=== PATIENT | female | born 1990 | race Hispanic/Latino ===

== ENCOUNTER 2017-10-30 21:00 | Inpatient (IN) | payer MEDICAID, OTHER, SELFPAY ==
[2017-10-30] MEDS ORDERED: Acetaminophen 500 MG TAB PO PRN (22:48)
[2017-10-30] MEDS ORDERED: Lidocaine 1% (PF) 30 ML VIAL SC PRN (22:48)
[2017-10-30] MEDS ORDERED: Misoprostol 200 MCG TAB PR PRN (22:48)
[2017-10-30] MEDS ORDERED: HYDROcodone/Acetaminophen 5/325 mg Tablet PO PRN (22:48)
[2017-10-30] MEDS ORDERED: Ibuprofen 800 MG TAB PO PRN (22:48)
[2017-10-30] MEDS ORDERED: Promethazine HCl 25 MG/ML VIAL IM PRN (22:48)
[2017-10-30] MEDS ORDERED: Zolpidem Tartrate 5 MG TAB PO PRN (22:48)
[2017-10-30] MEDS ORDERED: LR 500 ML/Oxytocin 10 units 500 ML IV SCH (22:48)
[2017-10-30] MEDS ORDERED: Ondansetron HCl/PF 4 MG/2 ML Vial IVP PRN (22:48)
[2017-10-30] MEDS ORDERED: Acetaminophen/Codeine 30-300mg Tablet PO PRN (22:48)
[2017-10-30 23:17] VITALS: BMI 28.6
[2017-10-30] MEDS: Lactated Ringer's 1,000 ML IV SCH (23:30)
[2017-10-30 23:33] LABS: Mean Corpuscular HGB CONC 34.2 g/dL (32.0-36.0); Mean Corpuscular Hemoglobin 30.7 pg (27.0-31.0); Mean Corpuscular Volume 89.9 fl (81.0-99.0); Mean Platelet Volume 6.9 fL (7.4-10.4); Platelet Count 284 thou/uL (130-400); RBC Distribution Width 12.2 % (11.5-14.5); White Blood Cell (WBC) Count 11.3 thou/uL (4.8-10.8)
[2017-10-30] MEDS ORDERED: Misoprostol 100 MCG TAB ONE (23:33)
[2017-10-30] MEDS: Misoprostol 100 MCG TAB VAG SCH (23:47)
[2017-10-30] MEDS: LR 500 ML/Oxytocin 10 units 500 ML IV SCH (23:49)
[2017-10-31 00:38] LABS: HBSAg Index 0.48 S/CO (0-0.99); Hep B Surf Ag Non-Reactive S/CO (NonReactive)
[2017-10-31 00:56] LABS: Syphilis Antibody Nonreactive (Nonreactive); Syphilis Antibody Index 0.06 S/CO (<1.00 Non-Reactive)
[2017-10-31] MEDS: Misoprostol 100 MCG TAB VAG SCH ×6 (02:50→16:48)
[2017-10-31] MEDS: Lactated Ringer's 1,000 ML IV SCH ×3 (06:39→13:00)
[2017-10-31] MEDS: LR 500 ML/Oxytocin 10 units 500 ML IV SCH (11:18)
[2017-10-31] MEDS ORDERED: Fentanyl 4 mcg/Marc 0.1% Cadd 100 ML ONE (11:25)
[2017-10-31] MEDS ORDERED: Naloxone HCl 0.4 mg/ml Vial IVP PRN ×2 (13:43)
[2017-10-31] MEDS ORDERED: diphenhydrAMINE 50 MG/ML VIAL IVP PRN (13:43)
[2017-10-31] MEDS ORDERED: Eucerin (Mineral Oil/Petrolatum,White) 30 gm Jar TOP PRN (13:43)
[2017-10-31] MEDS ORDERED: Ondansetron HCl/PF 4 MG/2 ML Vial IVP PRN ×2 (13:43→21:33)
[2017-10-31] MEDS ORDERED: Lactated Ringer's 500 ML IV PRN (13:43)
[2017-10-31] MEDS ORDERED: ePHEDrine/0.9% NaCl/PF SYRINGE 50 mg/10 ml SLOW IVP PRN (13:43)
[2017-10-31] MEDS ORDERED: Promethazine HCl 25 MG/ML VIAL IM PRN (13:43)
[2017-10-31] MEDS ORDERED: Acetaminophen 325 MG TAB PO PRN (13:43)
[2017-10-31] MEDS ORDERED: Fentanyl 4mcg/Marcaine 0.1% Cassette 100 ML EPIDURAL SCH (13:45)
[2017-10-31] MEDS ORDERED: Communication Order-Pharmacy FS SCH (13:45)
[2017-10-31] MEDS: LR / Pitocin 40 units/1000 ml 1,000 ML IV PRN ×2 (18:50→20:43)
[2017-10-31] MEDS ORDERED: Lidocaine 2% MPF 10 ML AMP (For Epidural Use) ONE (20:06)
[2017-10-31] MEDS ORDERED: Bisacodyl 10 MG SUPP PR PRN (21:33)
[2017-10-31] MEDS ORDERED: Benzocaine/Menthol 20-0.5% 60 ML CAN TOP PRN (21:33)
[2017-10-31] MEDS ORDERED: HYDROcodone/Acetaminophen 5/325 mg Tablet PO PRN (21:33)
[2017-10-31] MEDS ORDERED: Acetaminophen/Codeine 30-300mg Tablet PO PRN (21:33)
[2017-10-31] MEDS ORDERED: Lanolin Ointment 7 GM TUBE TOP PRN (21:33)
[2017-10-31] MEDS ORDERED: diphenhydrAMINE 25 MG CAP PO PRN (21:33)
[2017-10-31] MEDS ORDERED: LR / Pitocin 40 units/1000 ml 1,000 ML IV SCH (21:33)
[2017-10-31] MEDS ORDERED: Preparation H Ointment 28 GM TUBE PR PRN (21:33)
[2017-10-31] MEDS ORDERED: Milk Of Magnesia 30 ML UDCUP PO PRN (21:33)
[2017-10-31] MEDS ORDERED: Docusate Calcium (SURFAK) 240 MG CAP PO SCH (21:45)
[2017-11-01] MEDS: Ibuprofen 800 MG TAB PO SCH ×3 (05:36→21:31)
[2017-11-01] MEDS: Ferrous Sulfate 325 MG TAB PO SCH ×2 (09:24→14:07)
[2017-11-01] MEDS: Prenatal Vitamin 1 TAB PO SCH (09:25)
[2017-11-01] MEDS: Docusate Calcium (SURFAK) 240 MG CAP PO SCH ×2 (09:25→21:31)
[2017-11-02] MEDS: Ibuprofen 800 MG TAB PO SCH (06:19)
[2017-11-02 08:22] VITALS: BP 116/62; TEMP 98.7
[2017-11-02] MEDS: Ferrous Sulfate 325 MG TAB PO SCH (09:52)
[2017-11-02] MEDS: Prenatal Vitamin 1 TAB PO SCH (09:53)
[2017-11-02] MEDS: Docusate Calcium (SURFAK) 240 MG CAP PO SCH (09:53)
[2017-11-02] MEDS: Misoprostol 100 MCG TAB VAG SCH (09:57)
== END 2017-11-02 12:30 | disposition home or self-care (01) | DRG 775 ==
LOC: L&D 22:37 → 3SW 10-31 21:16
PROVIDERS: ADMIT Family Medicine; ATTEND Family Medicine
PROC: 10907ZC Drainage of Amniotic Fluid, Therapeutic from Products of Conception, Via Natural or Artificial Opening (ICD-10-PCS; 2017-10-30)
PROC: 3E033VJ Introduction of Other Hormone into Peripheral Vein, Percutaneous Approach (ICD-10-PCS; 2017-10-30)
PROC: 10E0XZZ Delivery of Products of Conception, External Approach (ICD-10-PCS; principal; 2017-10-31)
PROC: 0HQ9XZZ Repair Perineum Skin, External Approach (ICD-10-PCS; 2017-10-31)
DX: O48.0 Post-term pregnancy (principal); O70.0 First degree perineal laceration during delivery; Z3A.40 40 weeks gestation of pregnancy; Z37.0 Single live birth
CPT/HCPCS: 51702; 76815; 85027; 86780; 87340; J2001; J7120

== ENCOUNTER 2017-11-18 13:39 | Outpatient (CLI) | payer OTHER ==
[2017-11-18 14:39] LABS: #Eosinphils 0.3 thou/uL (0.0-0.7); #Lymphocytes 3.2 thou/uL (1.20-3.40); #Monocytes 0.4 thou/uL (0.11-0.59); #Neutrophils 3.9 thou/uL (1.40-6.50); %Basophils 0.6 % (0.0-1.0); %Eosinophils 3.2 % (0.0-10.0); %Lymphocytes 40.8 % (21.0-51.0); %Monocytes 5.4 % (0.0-10.0); Hemoglobin 12.8 g/dL (12.0-16.0); Mean Corpuscular HGB CONC 32.7 g/dL (32.0-36.0); Mean Corpuscular Hemoglobin 29.7 pg (27.0-31.0); Mean Corpuscular Volume 90.8 fl (81.0-99.0); Mean Platelet Volume 6.7 fL (7.4-10.4); Platelet Count 366 thou/uL (130-400); RBC Distribution Width 11.6 % (11.5-14.5); Red Blood Cell (RBC) Count 4.31 mill/uL (4.20-5.40); White Blood Cell (WBC) Count 7.9 thou/uL (4.8-10.8)
[2017-11-18 15:04] LABS: ALT (SGPT) 17 U/L (8-55); AST (SGOT) 24 U/L (5-34); Albumin 4.1 g/dL (3.5-5.0); Alkaline Phosphatase 107 U/L (40-150); Anion Gap 12 mmol/L (10-20); BUN (Urea Nitrogen) 13 mg/dL (7.0-18.7); Bilirubin, Direct 0.2 mg/dL (0.1-0.3); Bilirubin, Total 0.5 mg/dL (0.2-1.2); Calc. Creatinine Clearance 0 mL/min (70-130); Calcium 9.3 mg/dL (7.8-10.44); Carbon Dioxide 24 mmol/L (22-29); Chloride 106 mmol/L (98-107); Estimated GFR-MDRD 90; Glucose 87 mg/dL (70-105); Potassium 4.2 mmol/L (3.5-5.1); Protein, Total 7.6 g/dL (6.0-8.3); Sodium 138 mmol/L (136-145)
== END 2017-11-18 13:40 | disposition home or self-care (01) ==
LOC: LABBT 13:39
PROVIDERS: ATTEND Surgery
DX: Z01.812 Encounter for preprocedural laboratory examination (principal); K80.20 Calculus of gallbladder without cholecystitis without obstruction
CPT/HCPCS: 80048; 80076; 85025

== ENCOUNTER 2017-11-21 07:11 | Day surgery (SDC) | payer OTHER ==
[2017-11-18 14:07] VITALS: BMI 24.0
[2017-11-21] MEDS ORDERED: Midazolam HCl 2 mg/2 ml Vial ONE (08:24)
[2017-11-21] MEDS ORDERED: Fentanyl 100 MCG/2 ML VIAL ONE (08:48)
[2017-11-21] MEDS ORDERED: HYDROmorphone 0.5 MG/0.5 ML SYRINGE ONE (08:49)
[2017-11-21] MEDS ORDERED: Lidocaine 1% w/Epinephrine 1:200K 30 ML VIAL ONE (08:51)
[2017-11-21] MEDS ORDERED: Bupivacaine PF 0.5% 30 ML VIAL ONE (08:51)
[2017-11-21] MEDS ORDERED: CEFAZOLIN/Water 2 GM/20 ML SYRINGE ONE (08:57)
[2017-11-21] MEDS ORDERED: HYDROcodone/Acetaminophen 5/325 mg Tablet ONE (11:31)
--- NOTE | 2017-11-22 10:27 | OP ---
DATE OF PROCEDURE: 11/22/2017 PREOPERATIVE DIAGNOSIS: Symptomatic gallstones. POSTOPERATIVE DIAGNOSIS: Symptomatic gallstones. PROCEDURE: Laparoscopic cholecystectomy. SURGEON: Fred Franks M.D. ANESTHESIA: General. ESTIMATED BLOOD LOSS: Minimal. COMPLICATIONS: None. SPECIMEN: Gallbladder. FINDINGS: Chronic cholecystitis. PROCEDURE IN DETAIL: The patient was taken to the Operating Room and laid supine on the Operating Qian m table. After general anesthetic was obtained, the abdomen was prepped and draped in a sterile fashi on. A curved incision was made below the umbilicus. Cautery was used to dissect down to the umbilical fascia. Umbilical fascia was incised and held up using a Michelle. The abdominal cavity was entered us ing a Vikki clamp. Holding stitch of Vicryl was placed on each side of the fascia. Monzon trocar was placed. High-flow pneumoperitoneum was obtained. An upper midline 5-mm port and two right upper quadr ant 5-mm ports were placed under direct camera visualization. The gallbladder was retracted from the gallbladder fossa. The peritoneum of the gallbladder was opened anteriorly and posteriorly. The criti estella view triangle was seen showing only the cystic duct and cystic artery branching from medial to la teral. There were no other branching structures. Two clips were placed proximally on the cystic duct and one laterally. It was cut using laparoscopic scissors. The cystic artery was taken in the same wa y. Electrocautery was then used to dissect the gallbladder out of the gallbladder fossa. The gallblad lia was placed in an Endo catch bag and brought out through the Monzon. There was no bleeding or bile in the liver bed. The cystic duct stump and cystic artery stump were intact without evidence of extr avasation or bleeding. All port sites were infiltrated using local anesthesia. All ports were removed under camera visualization. Pneumoperitoneum was let down. The Vicryl was used to close the fascial defect below the umbilicus. All incisions were irrigated and closed using 4-0 Monocryl and DermaBond. The patient was en route to Recovery in stable condition. All instrument counts, needle counts and l ap counts were correct.
== END 2017-11-21 12:15 | disposition home or self-care (01) ==
LOC: SDC 07:11
PROVIDERS: ATTEND Surgery
PROC: 0FT44ZZ Resection of Gallbladder, Percutaneous Endoscopic Approach (ICD-10-PCS; principal; 2017-11-21)
DX: K80.10 Calculus of gallbladder with chronic cholecystitis without obstruction (principal); Z79.899 Other long term (current) drug therapy; Z98.890 Other specified postprocedural states
CPT/HCPCS: 88304; J0131; J1170; J2250; J3010; S0020